=== PATIENT | male | born 1985 | race Caucasian/White ===

== ENCOUNTER → 2018-04-29 | Outpatient (CLI) | payer OTHER ==
--- NOTE | 2018-04-29 22:46 | MR ---
EXAMINATION TYPE: MR knee LT wo con DATE OF EXAM: 04/29/2018 COMPARISON: NONE HISTORY: Left Knee Pain x4 months TECHNIQUE: Multiplanar, multisequence images of the knee is performed without IV contrast. FINDINGS: MEDIAL MENISCUS: Anterior horn is intact without tear. Oblique signal posterior horn of medial menisc us extending to inferior articular surface, there is marginal irregularity involving posterior aspect posterior horn. LATERAL MENISCUS: Anterior and posterior horns are intact without tear. CRUCIATE LIGAMENTS: The anterior and posterior cruciate ligaments are intact and unremarkable. COLLATERAL LIGAMENTS: The medial collateral ligament and lateral collateral ligament complex are inta ct. Mild fluid signal surrounds the medial collateral ligament complex on coronal image 18. EXTENSOR MECHANISM: Visualized quadriceps and patellar tendons are intact. EFFUSION: No significant suprapatellar joint effusion. POPLITEAL CYST: Small popliteal/tanner cyst axial image 10. TRICOMPARTMENT SPACES: Tricompartment joint spaces are fairly well maintained, there is no significan t spurring. CARTILAGE: No significant chondromalacia patella is present. Tricompartmental compartment articular c artilage is fairly well preserved BONE MARROW SIGNAL: Small focus of T2 hyperintensity or edema medial aspect distal medial femoral con dyle coronal image 16 is noted. OTHER: No additional significant abnormality is appreciated. IMPRESSION: 1. Oblique full thickness tear posterior horn of medial meniscus. 2. Mild MCL sprain injury. 3. Small focus of osseous contusion and/or bone marrow edema involving the medial aspect medial dista l femoral condyle. 4. Small popliteal cyst.
== END | disposition home or self-care (01) ==
LOC: RADMRIMAIN 19:39
PROVIDERS: ATTEND Orthopaedic Surgery
DX: S83.242A Other tear of medial meniscus, current injury, left knee, initial encounter (principal); S83.412A Sprain of medial collateral ligament of left knee, initial encounter; M71.22 Synovial cyst of popliteal space [Baker], left knee; T14.8XXA Other injury of unspecified body region, initial encounter